=== PATIENT | female | born 1940 | race Hispanic/Latino ===

== ENCOUNTER 2017-08-21 09:00 | Outpatient (CLI) | payer MEDICARE, OTHER ==
--- NOTE | 2017-08-21 10:35 | XRay Report ---
XRAY RIGHT SHOULDER THREE VIEWS: 08/21/17 09:00:00 CLINICAL: Right shoulder pain. FINDINGS: Status post rotator cuff repair with six fixation screws in the humeral head. Mild irregularity of the inferior glenoid. Mild acromioclavicular joint arthritis. No fracture or dislocation. No bone lesion. Normal soft tissues. IMPRESSION: Mild glenohumeral joint arthritis. Status post rotator cuff repair.
== END 2017-08-21 09:01 | disposition home or self-care (01) ==
LOC: SPVIMAG 09:00
PROVIDERS: ATTEND Orthopaedic Surgery Sports Medicine
DX: M19.011 Primary osteoarthritis, right shoulder (principal); Z98.890 Other specified postprocedural states